=== PATIENT | male | born 1945 | race Caucasian/White ===

== ENCOUNTER 2016-10-18 09:28 | Emergency (ER) | payer BC ==
[~2016-10-18] VITALS: Ht 182.9 cm; Wt 80.9 kg
[~2016-10-18 09:28] MED LIST: FLECAINIDE; FLECAINIDE ACE100 MG PO; PRADAXA150 MG PO; RITALIN10 MG PO
[2016-10-18 10:21] LABS: HEMATOCRIT 49.6 % (38.0-50.0); MCH 28.4 PG (29.0-34.0); MCHC 33.1 G/DL (30.0-36.0); MCV 85.8 FL (86-99); PLATELET COUNT 129 K/uL (156-360); RBC DIS.WIDTH-CV 14.9 % (11.8-14.6); RBC DIS.WIDTH-SD 46.7 % (39-53); RED BLOOD COUNT 5.78 M/uL (4.00-5.50); WHITE BLOOD COUNT 5.9 K/uL (4.1-10.2)
[2016-10-18 10:31] LABS: CHLORIDE 105 mEq/L (99-109); POTASSIUM 4.7 mEq/L (3.7-5.4); SODIUM 141 mEq/L (136-147)
[2016-10-18 10:33] LABS: GLUCOSE 101 mg/dL (70-99)
[2016-10-18 10:34] LABS: ANION GAP 12 MEQ/L (2-14)
[2016-10-18 10:37] LABS: GFR ESTIMATE (CALCULATED) > 59 mL/min/
[2016-10-18 10:38] LABS: UREA NITROGEN (BUN) 14 mg/dL (9-23)
[2016-10-18] MEDS ORDERED: TYLENOL WITH C1 EACH PO (14:26)
[2016-10-18] MEDS ORDERED: CLINDAMYCIN HC300 MG PO (14:26)
[2016-10-18] MEDS ORDERED: AMOXICILLIN500 MG PO (14:34)
[2016-10-18] MEDS ORDERED: ELIQUIS5 MG PO (14:34)
[2016-10-18] MEDS ORDERED: DAILY VITE1 EAC1 PO (14:35)
[2016-10-18] MEDS ORDERED: CIALIS5 MG PO (14:35)
[2016-10-18 14:46] VITALS: BP 143/79
== END 2016-10-18 14:48 | disposition home or self-care (01) ==
LOC: EME 09:28
PROVIDERS: Nurse Practitioner Family
DX: L03.211 Cellulitis of face (principal); K02.9 Dental caries, unspecified; Z79.01 Long term (current) use of anticoagulants; Z87.891 Personal history of nicotine dependence
CPT/HCPCS: 70487; 80048; 85027; 99281; 99282; J7030